=== PATIENT | female | born 1985 | race Caucasian/White ===

== ENCOUNTER 2018-08-06 17:45 | Emergency (ER) | payer SELFPAY ==
[~2018-08-06] VITALS: Ht 160 cm; Wt 88.0 kg
== END 2018-08-06 19:10 | disposition left against medical advice (07) ==
LOC: ER 17:45
DX: Z53.21 Procedure and treatment not carried out due to patient leaving prior to being seen by health care provider (principal)

== ENCOUNTER 2018-08-12 13:03 | Emergency (ER) | payer OTHER ==
[~2018-08-12] VITALS: Ht 160 cm; Wt 87.5 kg
[2018-08-12] MEDS ORDERED: Inderal 20 mg T20 MG (13:27)
[2018-08-12] MEDS ORDERED: ALPR.5 PO (13:28)
[2018-08-12] MEDS ORDERED: PARO20 PO (13:28)
[2018-08-12] MEDS ORDERED: Zofran8 MG PO (16:20)
[2018-08-12] MEDS ORDERED: Xanax1 MG SL (16:20)
== END 2018-08-12 16:51 | disposition home or self-care (01) ==
LOC: ER 13:03
DX: R07.9 Chest pain, unspecified (principal); F41.9 Anxiety disorder, unspecified; Z79.899 Other long term (current) drug therapy
CPT/HCPCS: 36415; 84484; 93005; 93010; 99284-25

== ENCOUNTER → 2018-11-12 | Outpatient (CLI) | payer OTHER ==
[~2018-11-12] MED LIST: ALPR.5 PO; Inderal 20 mg T20 MG; PARO20 PO; Xanax1 MG SL; Zofran8 MG PO
[2018-11-12 14:25] LABS: BASOPHILS ABSOLUTE AUTO 0.06 K/mm3 (0.00-0.23); BASOPHILS PERCENT AUTO 1 % (0-2); EOSINOPHILS ABSOLUTE AUTO 0.15 K/mm3 (0.00-0.68); EOSINOPHILS PERCENT AUTO 2 % (0-6); Hematocrit 44.2 % (33.0-51.0); Hemoglobin 14.7 g/dL (11.5-16.0); IMMATURE GRAN ABSOLUTE AUTO 0.02 K/mm3 (0.00-0.10); IMMATURE GRAN PERCENT AUTO 0 % (0-1); LYMPHOCYTES ABSOLUTE AUTO 1.92 K/mm3 (0.84-5.20); LYMPHOCYTES PERCENT AUTO 22 % (21-46); MONOCYTES ABSOLUTE AUTO 0.61 K/mm3 (0.16-1.47); MONOCYTES PERCENT AUTO 7 % (4-13); Mean Corpuscular HGB 28.5 pg (26.0-34.0); Mean Corpuscular HGB Conc 33.3 g/dL (31.5-36.5); Mean Corpuscular Volume 86 fL (80-100); Mean Platelet Volume 9.3 fL (9.1-12.4); NEUTROPHILS ABSOLUTE AUTO 5.99 K/mm3 (1.96-9.15); NEUTROPHILS PERCENT AUTO 69 % (41-73); Platelet Count 373 K/mm3 (150-400); RDW Standard Deviation 40.8 fL (35.1-46.3); Red Blood Cell Count 5.15 M/mm3 (3.80-5.20); White Blood Cell Count 8.75 K/mm3 (4.00-11.30)
[2018-11-12 14:55] LABS: Alanine Aminotransfer (ALT/SGP 24 U/L (12-78); Albumin, Blood 3.7 g/dL (3.4-5.0); Alk Phos 46 U/L (50-136); Anion Gap 6 mmol/L (6-16); Aspartate Aminotrans (AST/SGOT 17 U/L (12-37); Bilirubin, Total 0.4 mg/dL (0.1-1.0); Blood Urea Nitrogen 11 mg/dL (8-24); Bun/Creatinine Ratio 18.4 (12.0-20.0); CO2, Blood 23 mmol/L (21-32); Calcium, Blood 8.7 mg/dL (8.5-10.1); Chloride, Blood 109 mmol/L (98-108); Globulin, Blood 3.7 g/dL (2.2-4.0); Glomerular Filtration Rate >60 (60-); Glucose, Blood 109 mg/dL (70-99); Potassium, Blood 3.9 mmol/L (3.5-5.5); Sodium, Blood 138 mmol/L (136-145); Total Protein, Blood 7.4 g/dL (6.4-8.2)
== END | disposition home or self-care (01) ==
LOC: LAB 14:02 → LAB SHORT 14:02
DX: R10.9 Unspecified abdominal pain (principal)
CPT/HCPCS: 80053; 85025

== ENCOUNTER 2019-04-17 11:34 | Day surgery (SDC) | payer OTHER ==
[~2019-04-17] VITALS: Ht 160 cm; Wt 90.3 kg
[~2019-04-17 11:34] MED LIST changes: +ALPR1 PO; +B Complex #11 EACH PO; +CALCIUM 500 +1 EAC2 PO; +Cod Liver Oil1 EAC2 PO; +DESV50 PO; +Junel Fe 1-201 EACH PO; +MULTI VITAMIN1 EACH PO; +Melatonin1 MG PO; +NAPR220 PO; +PROM25 PO; +PROP60 PO
--- NOTE | 2019-04-17 15:35 | NUR ---
04/17/19 1535 Cassy Guerra 1135 PT. HAD BEEN TOLD THAT DR. LEWIS WAS RUNNING BEHIND BY HOME CARE ASSOCIATE. PT. CONCERNED SO [facility] [place] WENT TO TALK WITH PT. PT. WAS CONCERNED THAT HER ANXIETY MEDICATION WHICH LASTS ONLY 3-4 WOULDN'T LAST TIL SHE WAS TAKEN IN FOR HER PROCEDURE WHICH WAS SCHEDULED AT 1300. PT. WAS INFORMED THAT DR. LEWIS WAS RUNNING APPROX. 1/2 BEHIND. PT. HAD ARRIVED EARLY & WAS SCHEDULED TO BE HERE AT 1145.
== END 2019-04-17 14:42 | disposition home or self-care (01) ==
LOC: ORSCSDS 11:34
PROVIDERS: Internal Medicine Gastroenterology
PROC: 0DB68ZX Excision of Stomach, Via Natural or Artificial Opening Endoscopic, Diagnostic (ICD-10-PCS; principal; 2019-04-17 13:00)
PROC: 0DB88ZX Excision of Small Intestine, Via Natural or Artificial Opening Endoscopic, Diagnostic (ICD-10-PCS; principal; 2019-04-17 13:00)
DX: R10.10 Upper abdominal pain, unspecified (principal); F41.8 Other specified anxiety disorders; F43.10 Post-traumatic stress disorder, unspecified; J45.909 Unspecified asthma, uncomplicated; Z79.899 Other long term (current) drug therapy
CPT/HCPCS: 88305; 88342; J2250; J2704; J7120

== ENCOUNTER → 2019-05-21 | Outpatient (CLI) | payer OTHER | END | disposition home or self-care (01) | LOC: LAB 09:30 → LAB SHORT 09:30 | DX: J02.9 Acute pharyngitis, unspecified (principal) | CPT/HCPCS: 87081; 87147 ==

== ENCOUNTER → 2019-06-01 | Outpatient (CLI) | payer OTHER | END | disposition home or self-care (01) | LOC: LAB SHORT 19:15 → LAB 19:15 | DX: J02.9 Acute pharyngitis, unspecified (principal) | CPT/HCPCS: 87081 ==

== ENCOUNTER 2019-11-01 09:34 | Day surgery (SDC) | payer OTHER ==
[~2019-11-01] VITALS: Ht 160 cm; Wt 89.6 kg
== END 2019-11-01 12:25 | disposition home or self-care (01) ==
LOC: ORSCSDS 09:34
PROVIDERS: Internal Medicine Gastroenterology
PROC: 0DBE8ZX Excision of Large Intestine, Via Natural or Artificial Opening Endoscopic, Diagnostic (ICD-10-PCS; principal; 2019-11-01 11:00)
PROC: 0DBB8ZX Excision of Ileum, Via Natural or Artificial Opening Endoscopic, Diagnostic (ICD-10-PCS; principal; 2019-11-01 11:00)
DX: R93.3 Abnormal findings on diagnostic imaging of other parts of digestive tract (principal); D3A.8 Other benign neuroendocrine tumors; K64.8 Other hemorrhoids
CPT/HCPCS: 88305; 88342; J2250; J2704; J7120

== ENCOUNTER → 2020-01-02 | Outpatient (CLI) | payer OTHER ==
[2020-01-04 15:10] LABS: HPV 16 Negative (Negative); HPV 18 Negative (Negative); HPV OTHER HR TYPES Negative (Negative)
== END | disposition home or self-care (01) ==
LOC: LAB SHORT 10:30 → LAB 10:30
PROVIDERS: Obstetrics & Gynecology
DX: Z01.419 Encounter for gynecological examination (general) (routine) without abnormal findings (principal)
CPT/HCPCS: 87624; G0123

== ENCOUNTER → 2021-01-14 | Outpatient (CLI) | payer OTHER | END | disposition home or self-care (01) | LOC: LAB EV 12:43 → LAB SHORT 12:43 | DX: N39.0 Urinary tract infection, site not specified (principal) | CPT/HCPCS: 87077; 87086; 87186 ==

== ENCOUNTER → 2021-06-09 | Outpatient (CLI) | payer OTHER | END | disposition home or self-care (01) | LOC: LAB SHORT 15:05 → LAB 15:05 | DX: J03.90 Acute tonsillitis, unspecified (principal) | CPT/HCPCS: 87081 ==

== ENCOUNTER → 2021-10-27 | Outpatient (CLI) | payer OTHER | LOC: LAB 14:33 → LAB SHORT 14:33 | DX: J03.90 Acute tonsillitis, unspecified (principal) | CPT/HCPCS: 87081; 87147 ==

== ENCOUNTER → 2022-02-17 | Outpatient (CLI) | payer OTHER | END | disposition home or self-care (01) | LOC: LAB SHORT 08:11 | DX: J03.90 Acute tonsillitis, unspecified (principal) | CPT/HCPCS: 87081; 87147 ==

== ENCOUNTER → 2022-03-20 | Outpatient (CLI) | payer OTHER ==
[2022-03-20 11:54] LABS: BASOPHILS ABSOLUTE AUTO 0.04 K/mm3 (0.00-0.23); BASOPHILS PERCENT AUTO 1 % (0-2); EOSINOPHILS ABSOLUTE AUTO 0.32 K/mm3 (0.00-0.68); EOSINOPHILS PERCENT AUTO 6 % (0-6); Hematocrit 43.2 % (33.0-51.0); Hemoglobin 14.6 g/dL (11.5-16.0); IMMATURE GRAN ABSOLUTE AUTO 0.01 K/mm3 (0.00-0.10); IMMATURE GRAN PERCENT AUTO 0 % (0-1); LYMPHOCYTES ABSOLUTE AUTO 1.52 K/mm3 (0.84-5.20); LYMPHOCYTES PERCENT AUTO 27 % (21-46); MONOCYTES ABSOLUTE AUTO 1.02 K/mm3 (0.16-1.47); MONOCYTES PERCENT AUTO 18 % (4-13); Mean Corpuscular HGB 28.2 pg (26.0-34.0); Mean Corpuscular HGB Conc 33.8 g/dL (31.5-36.5); Mean Corpuscular Volume 83 fL (80-100); Mean Platelet Volume 9.6 fL (9.1-12.4); NEUTROPHILS ABSOLUTE AUTO 2.81 K/mm3 (1.96-9.15); NEUTROPHILS PERCENT AUTO 49 % (41-73); Platelet Count 287 K/mm3 (150-400); RDW Coefficient Variation 14.2 % (11.7-14.2); RDW Standard Deviation 42.9 fL (35.1-46.3); Red Blood Cell Count 5.18 M/mm3 (3.80-5.20); White Blood Cell Count 5.72 K/mm3 (4.00-11.30)
[2022-03-20 12:08] LABS: Alanine Aminotransfer (ALT/SGP 25 U/L (12-78); Albumin, Blood 3.5 g/dL (3.4-5.0); Alk Phos 94 U/L (40-126); Anion Gap 10 mmol/L (6-16); Aspartate Aminotrans (AST/SGOT 17 U/L (12-37); Bilirubin, Total 0.2 mg/dL (0.1-1.0); Blood Urea Nitrogen 13 mg/dL (8-24); Bun/Creatinine Ratio 22.8 (12.0-20.0); CO2, Blood 24 mmol/L (21-32); Calcium, Blood 8.5 mg/dL (8.5-10.1); Chloride, Blood 104 mmol/L (98-108); Creatinine, Blood 0.57 mg/dL (0.40-1.00); Globulin, Blood 3.5 g/dL (2.2-4.0); Glomerular Filtration Rate >60 (60-); Glucose, Blood 92 mg/dL (70-99); Potassium, Blood 4.2 mmol/L (3.5-5.5); Sodium, Blood 138 mmol/L (136-145)
== END | disposition home or self-care (01) ==
LOC: LAB SHORT 11:46 → LAB 11:46
PROVIDERS: Chiropractor
DX: R07.9 Chest pain, unspecified (principal)
CPT/HCPCS: 80053; 84484; 85025; 85379

== ENCOUNTER 2022-12-01 09:30 | Emergency (ER) | payer OTHER ==
[~2022-12-01] VITALS: Ht 160 cm; Wt 90.7 kg
[2022-12-01 10:11] LABS: BASOPHILS ABSOLUTE AUTO 0.07 K/mm3 (0.00-0.23); BASOPHILS PERCENT AUTO 1 % (0-2); EOSINOPHILS ABSOLUTE AUTO 0.21 K/mm3 (0.00-0.68); EOSINOPHILS PERCENT AUTO 4 % (0-6); Hematocrit 43.1 % (33.0-51.0); Hemoglobin 14.5 g/dL (11.5-16.0); IMMATURE GRAN ABSOLUTE AUTO 0.01 K/mm3 (0.00-0.10); IMMATURE GRAN PERCENT AUTO 0 % (0-1); LYMPHOCYTES ABSOLUTE AUTO 1.26 K/mm3 (0.84-5.20); LYMPHOCYTES PERCENT AUTO 24 % (21-46); MONOCYTES ABSOLUTE AUTO 0.54 K/mm3 (0.16-1.47); MONOCYTES PERCENT AUTO 10 % (4-13); Mean Corpuscular HGB Conc 33.6 g/dL (31.5-36.5); Mean Corpuscular Volume 83 fL (80-100); Mean Platelet Volume 9.3 fL (9.1-12.4); NEUTROPHILS ABSOLUTE AUTO 3.22 K/mm3 (1.96-9.15); NEUTROPHILS PERCENT AUTO 61 % (41-73); Platelet Count 383 K/mm3 (150-400); RDW Coefficient Variation 13.5 % (11.7-14.2); RDW Standard Deviation 40.8 fL (35.1-46.3); Red Blood Cell Count 5.17 M/mm3 (3.80-5.20); White Blood Cell Count 5.31 K/mm3 (4.00-11.30)
[2022-12-01] MEDS ORDERED: BUSPIRONE HCL30 M1 PO (10:13)
[2022-12-01] MEDS ORDERED: HYDPAM50 PO (10:13)
[2022-12-01] MEDS ORDERED: AMBIEN10 MG PO (10:14)
[2022-12-01] MEDS ORDERED: PROG100 PO (10:14)
[2022-12-01] MEDS ORDERED: PROP10 PO (10:14)
[2022-12-01] MEDS ORDERED: ONDA4 PO (10:15)
[2022-12-01] MEDS ORDERED: ALPRAZOLAM0.5 MG PO (10:15)
[2022-12-01] MEDS ORDERED: DESVENLAFAXINE100 M3 PO (10:17)
[2022-12-01] MEDS ORDERED: MONT10T PO (10:17)
[2022-12-01] MEDS ORDERED: KETAMINE HCL PO (10:17)
[2022-12-01 10:34] LABS: Albumin, Blood 3.7 g/dL (3.4-5.0); Albumin/Globulin Ratio 1.1 (0.8-1.8); Bilirubin, Total 0.1 mg/dL (0.1-1.0); Calcium, Blood 8.8 mg/dL (8.5-10.1); Creatinine, Blood 0.57 mg/dL (0.40-1.00); Globulin, Blood 3.4 g/dL (2.2-4.0); Potassium, Blood 4.4 mmol/L (3.5-5.5); Total Protein, Blood 7.1 g/dL (6.4-8.2)
[2022-12-01] MEDS ORDERED: DICY20 PO (15:56)
[2022-12-01] MEDS ORDERED: HYDR1TAB94 PO (15:56)
[2022-12-01] MEDS ORDERED: ONDA4ODT MM (15:56)
== END 2022-12-01 16:11 | disposition home or self-care (01) ==
LOC: ER 09:30
PROVIDERS: Physician Assistant
DX: R10.10 Upper abdominal pain, unspecified (principal); Z79.899 Other long term (current) drug therapy; Z88.8 Allergy status to other drugs, medicaments and biological substances
CPT/HCPCS: 36415; 74177; 80053; 83690; 84703; 85025; A9270; J1170; J1885; J7030; Q9967

== ENCOUNTER 2022-12-02 22:18 | Observation (INO) | payer OTHER ==
[~2022-12-02] VITALS: Ht 160 cm; Wt 99.6 kg
[~2022-12-02 22:18] MED LIST changes: +ALPRAZOLAM0.5 MG PO; +AMBIEN10 MG PO; +BUSPIRONE HCL30 M1 PO; +DESVENLAFAXINE100 M3 PO; +DICY20 PO; +HYDPAM50 PO; +HYDR1TAB94 PO; +KETAMINE HCL PO; +MONT10T PO; +ONDA4 PO; +ONDA4ODT MM; +PROG100 PO; +PROP10 PO
[2022-12-02 23:17] LABS: BASOPHILS PERCENT AUTO 1 % (0-2); EOSINOPHILS ABSOLUTE AUTO 0.33 K/mm3 (0.00-0.68); EOSINOPHILS PERCENT AUTO 3 % (0-6); Hematocrit 43.7 % (33.0-51.0); Hemoglobin 14.5 g/dL (11.5-16.0); IMMATURE GRAN ABSOLUTE AUTO 0.04 K/mm3 (0.00-0.10); IMMATURE GRAN PERCENT AUTO 0 % (0-1); LYMPHOCYTES ABSOLUTE AUTO 2.44 K/mm3 (0.84-5.20); LYMPHOCYTES PERCENT AUTO 20 % (21-46); MONOCYTES ABSOLUTE AUTO 0.98 K/mm3 (0.16-1.47); MONOCYTES PERCENT AUTO 8 % (4-13); Mean Corpuscular HGB 28.1 pg (26.0-34.0); Mean Corpuscular HGB Conc 33.2 g/dL (31.5-36.5); Mean Corpuscular Volume 85 fL (80-100); Mean Platelet Volume 9.1 fL (9.1-12.4); NEUTROPHILS ABSOLUTE AUTO 8.24 K/mm3 (1.96-9.15); NEUTROPHILS PERCENT AUTO 68 % (41-73); Platelet Count 367 K/mm3 (150-400); RDW Coefficient Variation 13.2 % (11.7-14.2); RDW Standard Deviation 41.1 fL (35.1-46.3); Red Blood Cell Count 5.16 M/mm3 (3.80-5.20); White Blood Cell Count 12.13 K/mm3 (4.00-11.30)
[2022-12-02 23:34] LABS: Alanine Aminotransfer (ALT/SGP 226 U/L (12-78); Albumin, Blood 3.6 g/dL (3.4-5.0); Alk Phos 129 U/L (50-136); Anion Gap 5 mmol/L (6-16); Aspartate Aminotrans (AST/SGOT 319 U/L (12-37); Bilirubin, Total 0.3 mg/dL (0.1-1.0); Blood Urea Nitrogen 13 mg/dL (8-24); Bun/Creatinine Ratio 19.2 (12.0-20.0); CO2, Blood 26 mmol/L (21-32); Calcium, Blood 8.8 mg/dL (8.5-10.1); Chloride, Blood 106 mmol/L (98-108); Creatinine, Blood 0.68 mg/dL (0.40-1.00); Globulin, Blood 3.6 g/dL (2.2-4.0); Glomerular Filtration Rate 114 (60-); Glucose, Blood 92 mg/dL (70-99); Potassium, Blood 3.8 mmol/L (3.5-5.5); Sodium, Blood 137 mmol/L (136-145); Total Protein, Blood 7.2 g/dL (6.4-8.2)
[2022-12-03 01:22] LABS: Acetaminophen, Random <2.0 ug/mL (10.0-30.0)
--- NOTE | 2022-12-03 19:42 | NUR ---
SHIFT SUMMARY S/P ELEVATED LIVER ENZYMES, DISCUSSED MRCP WITH PT AT BEDSIDE, FORM FILLED OUT FOR MRI AND FAXED TO IMAGING PENDING THEIR AVAILABILITY. NO ACUTE EVENTS THIS SHIFT, CALL LIGHT IN REACH, REPORT GIVEN TO JACQUELINE JAMA.
--- NOTE | 2022-12-03 20:41 | NUR ---
CONTACTING SURGEON CONTACTED DR JIMENES ABOUT PT TAKING HOME NIGHT MEDS, DR JIMENES SAID THIS IS OKAY. WILL UP PT ON DR'S ORDERS. PLAN TO CALL WITH FURTHER CONCERNS
--- NOTE | 2022-12-04 02:59 | NUR ---
VSS. PT SLEPT ON AND OFF T/O THE NIGHT. MEDICATED FOR PAIN WITH DILAUDID. PT TOLLERATING PO INTAKE W/O N/V. PLAN FOR MRCP SCAN AND LABS THIS AM, THIS WILL DICTATE DIRECTION OF PTS CARE. THE PATIENT IS CURRENTLY SLEEPIG, IN NO DISTRESS, CALL LIGHT IN REACH.
[2022-12-04 03:59] LABS: Albumin, Blood 3.3 g/dL (3.4-5.0); Albumin/Globulin Ratio 1.1 (0.8-1.8); Bilirubin, Total 0.3 mg/dL (0.1-1.0); Bun/Creatinine Ratio 16.9 (12.0-20.0); Calcium, Blood 8.4 mg/dL (8.5-10.1); Creatinine, Blood 0.65 mg/dL (0.40-1.00); Globulin, Blood 3.1 g/dL (2.2-4.0); Potassium, Blood 3.7 mmol/L (3.5-5.5); Total Protein, Blood 6.4 g/dL (6.4-8.2)
--- NOTE | 2022-12-04 15:00 | NUR ---
DISCHARGE SUMMARY S/P R FLANK PAIN, MRCP DONE TODAY, PT WAITED IN HER ROOM UNTIL THE PROCEDURE AND DENIED ANY NEED TODAY OTHER THAN INFORMATION WHEN AVAILABLE, NO C/O PAIN TODAY, INDEPENDENT IN ROOM. DISCUSSED DISCHARGE INFORMATION WITH HER AND HER INCLUDING HOME CARE, MEDICATIONS, AND FOLLOW UP INFORMATION. CONTACT INFORMATION GIVEN FOR FOLLOW UP AND QUESTIONS SHOULD THEY ARISE AFTER DC. IV ACCESS REMOVED AND NO DEVICES IN PLACE AT TIME OF DEPARTURE. PT LEFT AMBULATORY WITH HER TO GO HOME. NO QUESTIONS AT TIME OF DISCHARGE.
[2022-12-05 02:08] LABS: HBSAG SCREEN Negative (Negative); HCV AB <0.1 (0.0-0.9); HEP A AB, IGM Negative (Negative); HEP B CORE AB, IGM Negative (Negative)
== END 2022-12-04 14:50 | disposition home or self-care (01) ==
LOC: ER 22:18 → ERHOLD 12-03 02:58 → SURS 12-03 02:58 → ER 12-03 02:58 → ERHOLD 12-03 09:20 → SURS 12-03 09:20
PROVIDERS: Student in an Organized Health Care Education/Training Program; Surgery; ADMIT Surgery
DX: R10.13 Epigastric pain (principal); K76.0 Fatty (change of) liver, not elsewhere classified; R74.01 Elevation of levels of liver transaminase levels; F41.9 Anxiety disorder, unspecified; Z91.048 Other nonmedicinal substance allergy status; Z79.899 Other long term (current) drug therapy
CPT/HCPCS: 36415; 74183; 76705; 80053; 83690; 85025; A9270; A9581; G0480; J1170; J1885; J2405; J3010; J7030

== ENCOUNTER 2023-04-01 16:59 | Emergency (ER) | payer OTHER ==
[~2023-04-01] VITALS: Ht 160 cm; Wt 97.5 kg
[2023-04-01 17:14] VITALS: BP 127/69
[2023-04-01 17:37] LABS: BASOPHILS ABSOLUTE AUTO 0.08 K/mm3 (0.00-0.23); BASOPHILS PERCENT AUTO 1 % (0-2); EOSINOPHILS ABSOLUTE AUTO 0.21 K/mm3 (0.00-0.68); EOSINOPHILS PERCENT AUTO 1 % (0-6); Hematocrit 46.1 % (33.0-51.0); Hemoglobin 15.8 g/dL (11.5-16.0); IMMATURE GRAN ABSOLUTE AUTO 0.06 K/mm3 (0.00-0.10); IMMATURE GRAN PERCENT AUTO 0 % (0-1); LYMPHOCYTES ABSOLUTE AUTO 2.09 K/mm3 (0.84-5.20); LYMPHOCYTES PERCENT AUTO 12 % (21-46); MONOCYTES ABSOLUTE AUTO 1.43 K/mm3 (0.16-1.47); MONOCYTES PERCENT AUTO 8 % (4-13); Mean Corpuscular HGB 28.2 pg (26.0-34.0); Mean Corpuscular HGB Conc 34.3 g/dL (31.5-36.5); Mean Corpuscular Volume 82 fL (80-100); Mean Platelet Volume 9.3 fL (9.1-12.4); NEUTROPHILS ABSOLUTE AUTO 13.17 K/mm3 (1.96-9.15); NEUTROPHILS PERCENT AUTO 77 % (41-73); Platelet Count 400 K/mm3 (150-400); RDW Coefficient Variation 13.2 % (11.7-14.2); RDW Standard Deviation 39.4 fL (35.1-46.3); White Blood Cell Count 17.04 K/mm3 (4.00-11.30)
[2023-04-01 17:58] LABS: Albumin, Blood 3.9 g/dL (3.4-5.0); Albumin/Globulin Ratio 1.1 (0.8-1.8); Bilirubin, Total 0.3 mg/dL (0.1-1.0); Bun/Creatinine Ratio 20.1 (12.0-20.0); Creatinine, Blood 0.65 mg/dL (0.40-1.00); Globulin, Blood 3.7 g/dL (2.2-4.0); Potassium, Blood 3.3 mmol/L (3.5-5.5); Total Protein, Blood 7.6 g/dL (6.4-8.2)
[2023-04-01 18:23] LABS: Source, Urine Clean Catch
[2023-04-01 18:27] LABS: Appearance, Urine Clear (Clear); Bilirubin, Urine Neg (Neg); Blood, Urine Neg (Neg); Color, Urine Yellow (P-Yellow); Glucose Qualitative, Urine Neg (Neg); Ketones, Urine 1+ (Neg); Leukocyte Esterase, Urine Neg (Neg); Nitrite, Urine Neg (Neg); Protein, Urine 1+ (Neg); Specific Gravity, Urine 1.025 (1.003-1.022); Urobilinogen, Urine NORM (Normal)
[2023-04-01] MEDS ORDERED: DICY20 PO (22:22)
[2023-04-01] MEDS ORDERED: ONDA4ODT MM (22:22)
== END 2023-04-01 23:05 | disposition home or self-care (01) ==
LOC: ER 16:59
PROVIDERS: Student in an Organized Health Care Education/Training Program
DX: R10.84 Generalized abdominal pain (principal); D72.829 Elevated white blood cell count, unspecified; Z88.8 Allergy status to other drugs, medicaments and biological substances; Z79.899 Other long term (current) drug therapy
CPT/HCPCS: 74177; 80053; 81025; 83690; 85025; 96372-59; 96374-59; 96375; 96376; 99284-25; A9270; J0500; J1885; J2405; J7030; Q9967

== ENCOUNTER → 2023-06-21 | Outpatient (CLI) | payer OTHER ==
[2023-06-21 19:36] LABS: BASOPHILS ABSOLUTE AUTO 0.07 K/mm3 (0.00-0.23); BASOPHILS PERCENT AUTO 1 % (0-2); EOSINOPHILS ABSOLUTE AUTO 0.24 K/mm3 (0.00-0.68); EOSINOPHILS PERCENT AUTO 3 % (0-6); Hematocrit 44.9 % (33.0-51.0); IMMATURE GRAN ABSOLUTE AUTO 0.02 K/mm3 (0.00-0.10); IMMATURE GRAN PERCENT AUTO 0 % (0-1); LYMPHOCYTES ABSOLUTE AUTO 2.94 K/mm3 (0.84-5.20); LYMPHOCYTES PERCENT AUTO 39 % (21-46); MONOCYTES ABSOLUTE AUTO 0.67 K/mm3 (0.16-1.47); MONOCYTES PERCENT AUTO 9 % (4-13); Mean Corpuscular HGB Conc 33.4 g/dL (31.5-36.5); Mean Corpuscular Volume 84 fL (80-100); Mean Platelet Volume 9.6 fL (9.1-12.4); NEUTROPHILS ABSOLUTE AUTO 3.62 K/mm3 (1.96-9.15); NEUTROPHILS PERCENT AUTO 48 % (41-73); Platelet Count 351 K/mm3 (150-400); RDW Coefficient Variation 13.7 % (11.7-14.2); RDW Standard Deviation 42.3 fL (35.1-46.3); Red Blood Cell Count 5.36 M/mm3 (3.80-5.20); White Blood Cell Count 7.56 K/mm3 (4.00-11.30)
[2023-06-21 19:52] LABS: International Normalized Ratio 0.94; Prothrombin Time Results 9.9 Sec (9.7-11.5)
== END ==
LOC: LAB 17:48 → LAB SHORT 17:48
PROVIDERS: Nurse Practitioner Family
DX: R21 Rash and other nonspecific skin eruption (principal)
CPT/HCPCS: 85025; 85610

== ENCOUNTER → 2023-08-23 | Outpatient (CLI) | payer OTHER | END | disposition home or self-care (01) | LOC: LAB 12:30 → LAB SHORT 12:30 | DX: R30.0 Dysuria (principal) | CPT/HCPCS: 87086 ==

== ENCOUNTER → 2023-09-06 | Outpatient (CLI) | payer OTHER ==
[2023-09-06 13:25] LABS: BASOPHILS ABSOLUTE AUTO 0.07 K/mm3 (0.00-0.23); BASOPHILS PERCENT AUTO 1 % (0-2); EOSINOPHILS ABSOLUTE AUTO 0.14 K/mm3 (0.00-0.68); EOSINOPHILS PERCENT AUTO 3 % (0-6); Hematocrit 43.1 % (33.0-51.0); Hemoglobin 14.9 g/dL (11.5-16.0); IMMATURE GRAN ABSOLUTE AUTO 0.01 K/mm3 (0.00-0.10); IMMATURE GRAN PERCENT AUTO 0 % (0-1); LYMPHOCYTES ABSOLUTE AUTO 1.86 K/mm3 (0.84-5.20); LYMPHOCYTES PERCENT AUTO 33 % (21-46); MONOCYTES ABSOLUTE AUTO 0.65 K/mm3 (0.16-1.47); MONOCYTES PERCENT AUTO 12 % (4-13); Mean Corpuscular HGB 28.2 pg (26.0-34.0); Mean Corpuscular HGB Conc 34.6 g/dL (31.5-36.5); Mean Corpuscular Volume 82 fL (80-100); Mean Platelet Volume 9.6 fL (9.1-12.4); NEUTROPHILS ABSOLUTE AUTO 2.94 K/mm3 (1.96-9.15); NEUTROPHILS PERCENT AUTO 52 % (41-73); Platelet Count 379 K/mm3 (150-400); RDW Standard Deviation 38.6 fL (35.1-46.3); Red Blood Cell Count 5.28 M/mm3 (3.80-5.20); White Blood Cell Count 5.67 K/mm3 (4.00-11.30)
[2023-09-06 13:48] LABS: Albumin, Blood 4.1 g/dL (3.4-5.0); Albumin/Globulin Ratio 1.2 (0.8-1.8); Bilirubin, Total 0.6 mg/dL (0.1-1.0); Bun/Creatinine Ratio 9.9 (12.0-20.0); Calcium, Blood 8.9 mg/dL (8.5-10.1); Creatinine, Blood 0.61 mg/dL (0.40-1.00); Globulin, Blood 3.5 g/dL (2.2-4.0); Potassium, Blood 3.7 mmol/L (3.5-5.5); Total Protein, Blood 7.6 g/dL (6.4-8.2)
== END ==
LOC: LAB SHORT 13:11 → LAB 13:11
PROVIDERS: Physician Assistant
DX: O26.899 Other specified pregnancy related conditions, unspecified trimester (principal); R19.7 Diarrhea, unspecified
CPT/HCPCS: 80053; 84703; 85025; 87086

== ENCOUNTER 2023-12-31 05:57 | Emergency (ER) | payer OTHER ==
[~2023-12-31] VITALS: Ht 172.7 cm; Wt 90.7 kg
[2023-12-31] MEDS ORDERED: Morphine Sulfate 4 MG/1 ML Injection IV ONE (06:30)
[2023-12-31] MEDS ORDERED: Ondansetron HCl 2 MG / ML 2ML Vial IV ONE (06:30)
[2023-12-31 06:37] LABS: BASOPHILS ABSOLUTE AUTO 0.08 K/mm3 (0.00-0.23); BASOPHILS PERCENT AUTO 1 % (0-2); EOSINOPHILS ABSOLUTE AUTO 0.25 K/mm3 (0.00-0.68); EOSINOPHILS PERCENT AUTO 2 % (0-6); Hematocrit 48.2 % (33.0-51.0); Hemoglobin 16.5 g/dL (11.5-16.0); IMMATURE GRAN ABSOLUTE AUTO 0.03 K/mm3 (0.00-0.10); IMMATURE GRAN PERCENT AUTO 0 % (0-1); LYMPHOCYTES ABSOLUTE AUTO 3.25 K/mm3 (0.84-5.20); LYMPHOCYTES PERCENT AUTO 29 % (21-46); MONOCYTES ABSOLUTE AUTO 0.94 K/mm3 (0.16-1.47); MONOCYTES PERCENT AUTO 9 % (4-13); Mean Corpuscular HGB 28.6 pg (26.0-34.0); Mean Corpuscular HGB Conc 34.2 g/dL (31.5-36.5); Mean Corpuscular Volume 84 fL (80-100); Mean Platelet Volume 9.5 fL (9.1-12.4); NEUTROPHILS ABSOLUTE AUTO 6.54 K/mm3 (1.96-9.15); NEUTROPHILS PERCENT AUTO 59 % (41-73); Platelet Count 423 K/mm3 (150-400); RDW Coefficient Variation 13.5 % (11.7-14.2); RDW Standard Deviation 41.1 fL (35.1-46.3); Red Blood Cell Count 5.77 M/mm3 (3.80-5.20); White Blood Cell Count 11.09 K/mm3 (4.00-11.30)
[2023-12-31 06:59] LABS: Albumin, Blood 4.1 g/dL (3.4-5.0); Bilirubin, Total 0.4 mg/dL (0.1-1.0); Bun/Creatinine Ratio 23.1 (12.0-20.0); Calcium, Blood 9.8 mg/dL (8.5-10.1); Creatinine, Blood 0.61 mg/dL (0.40-1.00); Total Protein, Blood 8.1 g/dL (6.4-8.2)
[2023-12-31 08:45] LABS: Source, Urine Voided
[2023-12-31 08:49] LABS: Appearance, Urine Clear (Clear); Bilirubin, Urine Neg (Neg); Blood, Urine 3+ (Neg); Color, Urine Yellow (P-Yellow); Glucose Qualitative, Urine Neg (Neg); Ketones, Urine 1+ (Neg); Leukocyte Esterase, Urine Neg (Neg); Nitrite, Urine Neg (Neg); Protein, Urine 1+ (Neg); Specific Gravity, Urine 1.025 (1.003-1.022); Urobilinogen, Urine NORM (Normal)
[2023-12-31 09:20] LABS: Bacteria Few /hpf; Mucus Mod (0-Heavy); Squamous Epithelial Cells Few /hpf (Few)
[2023-12-31 10:10] VITALS: BP 142/87
== END 2023-12-31 10:11 | disposition home or self-care (01) ==
LOC: ER 05:57
PROVIDERS: Emergency Medicine
DX: R10.11 Right upper quadrant pain (principal); Z88.8 Allergy status to other drugs, medicaments and biological substances; Z91.040 Latex allergy status; Z79.899 Other long term (current) drug therapy
CPT/HCPCS: 80053; 81001; 81025; 83690; 85025; 96374; 96375; 99284-25; J2270; J2405

== ENCOUNTER → 2024-10-23 | Outpatient (CLI) | payer OTHER ==
[~2024-10-23] MED LIST changes: +CHROMIUM IV
[2024-10-23 11:53] LABS: BASOPHILS ABSOLUTE AUTO 0.07 K/mm3 (0.00-0.23); BASOPHILS PERCENT AUTO 1 % (0-2); EOSINOPHILS ABSOLUTE AUTO 0.21 K/mm3 (0.00-0.68); EOSINOPHILS PERCENT AUTO 4 % (0-6); Hematocrit 45.2 % (33.0-51.0); Hemoglobin 15.5 g/dL (11.5-16.0); IMMATURE GRAN ABSOLUTE AUTO 0.02 K/mm3 (0.00-0.10); IMMATURE GRAN PERCENT AUTO 0 % (0-1); LYMPHOCYTES ABSOLUTE AUTO 1.98 K/mm3 (0.84-5.20); LYMPHOCYTES PERCENT AUTO 34 % (21-46); MONOCYTES ABSOLUTE AUTO 0.46 K/mm3 (0.16-1.47); MONOCYTES PERCENT AUTO 8 % (4-13); Mean Corpuscular HGB 28.1 pg (26.0-34.0); Mean Corpuscular HGB Conc 34.3 g/dL (31.5-36.5); Mean Corpuscular Volume 82 fL (80-100); NEUTROPHILS ABSOLUTE AUTO 3.08 K/mm3 (1.96-9.15); NEUTROPHILS PERCENT AUTO 53 % (41-73); Platelet Count 386 K/mm3 (150-400); RDW Coefficient Variation 13.2 % (11.7-14.2); RDW Standard Deviation 39.6 fL (35.1-46.3); Red Blood Cell Count 5.51 M/mm3 (3.80-5.20); White Blood Cell Count 5.82 K/mm3 (4.00-11.30)
[2024-10-23 12:23] LABS: Albumin, Blood 3.6 g/dL (3.4-5.0); Albumin/Globulin Ratio 0.9 (0.8-1.8); Bilirubin, Total 0.4 mg/dL (0.1-1.0); Bun/Creatinine Ratio 24.4 (12.0-20.0); Calcium, Blood 9.2 mg/dL (8.5-10.1); Creatinine, Blood 0.53 mg/dL (0.40-1.00); Globulin, Blood 3.8 g/dL (2.2-4.0); Potassium, Blood 4.3 mmol/L (3.5-5.5); Total Protein, Blood 7.4 g/dL (6.4-8.2)
== END | disposition home or self-care (01) ==
LOC: LAB SHORT 10:35 → LAB 10:35
PROVIDERS: Physician Assistant
DX: R50.9 Fever, unspecified (principal); R05.1 Acute cough
CPT/HCPCS: 80053; 83690; 85025